=== PATIENT | male | born 1930 | race Caucasian/White ===

== ENCOUNTER 2016-08-26 12:16 | Day surgery (SDC) | payer OTHER ==
[2016-08-26] MEDS ORDERED: NS 500 ML IV ONE (12:22)
[2016-08-26] MEDS ORDERED: PROPOFOL 200 MG/20 ML VIAL IVP ONE (12:22)
[2016-08-26] MEDS ORDERED: fentaNYL 100 MCG/2 ML INJ IVP ONE (12:22)
[2016-08-26] MEDS ORDERED: BENZOCAINE UNIT DOSE SPRAY HURRICAINE MM ONE (12:22)
[2016-08-26] MEDS ORDERED: MIDAZOLAM 2 MG/2 ML VIAL IVP ONE (12:22)
--- NOTE | 2016-08-26 12:47 | CPEKG ---
Heart Rate: 77 RR Interval: 779 QRSD Interval: 142 QT Interval: 460 QTC Interval: 521 QRS [place]: -105 T Wave [place]: 64 EKG Severity - ABNORMAL ECG - EKG Impression: ATRIAL FIBRILLATION EKG Impression: probably ventricularly paced. Electronically Signed By: Pedro Grant 26-Aug-2016 16:51:09
[2016-08-26 13:06] LABS: INR 3.08 (0.83-1.16); PROTIME(PATIENT) 32.2 SEC (12.0-15.0)
[2016-08-26 13:07] LABS: APTT 47.3 SEC (23.0-38.0)
[2016-08-26 13:08] LABS: ANION GAP 11 mEq/L (8-16); CALCIUM 8.5 mg/dL (8.5-10.4); CARBON DIOXIDE 26 mEq/l (22-31); CHLORIDE 102 mEq/L (97-110); CREATININE 0.9 mg/dL (0.7-1.3); GLOMERULAR FILTRATION RATE > 60; GLUCOSE 97 mg/dL (70-100); MAGNESIUM 2.1 mg/dL (1.6-2.3); POTASSIUM 4.2 mEq/L (3.5-5.2); SODIUM 139 mEq/L (134-144)
--- NOTE | 2016-08-26 14:41 | CPEKG ---
Heart Rate: 61 RR Interval: 984 P-R Interval: 150 QRSD Interval: 96 QT Interval: 452 QTC Interval: 456 P [place]: -56 QRS [place]: 30 T Wave [place]: -20 EKG Severity - ABNORMAL ECG - EKG Impression: ATRIAL-PACED COMPLEXES EKG Impression: LOW VOLTAGE IN FRONTAL LEADS EKG Impression: ST/T wave abnormalities lateral leads, possible lateral ischemia. EKG Impression: BORDERLINE PROLONGED QT INTERVAL Electronically Signed By: Pedro Grant 26-Aug-2016 16:50:03
--- NOTE | 2016-08-28 16:05 | EPPROC ---
Electrophysiology Procedure Note: rocedure: CV Indication: AF Procedure: Pt sedated by anesthesia staff. Once sedated, he was cardioverted using 200J of DC. Pt successfully converted to SR. Conclusion: Successful CV Patient Problems: Problems Problem Status Diagnosed Syncope Acute Atrial fibrillation or flutter Acute
== END 2016-08-26 15:00 | disposition home or self-care (01) ==
LOC: FCATH 12:16
PROVIDERS: ATTEND Internal Medicine Cardiovascular Disease
PROC: 5A2204Z Restoration of Cardiac Rhythm, Single (ICD-10-PCS; principal; 2016-08-26)
DX: I48.0 Paroxysmal atrial fibrillation (principal); I48.92 Unspecified atrial flutter; Z79.01 Long term (current) use of anticoagulants
CPT/HCPCS: J2704

== ENCOUNTER → 2016-09-03 | Outpatient (CLI) | payer OTHER | LOC: BHFA 15:30 | PROVIDERS: ATTEND Internal Medicine Cardiovascular Disease | DX: I48.91 Unspecified atrial fibrillation (principal); I49.5 Sick sinus syndrome; I48.92 Unspecified atrial flutter ==

== ENCOUNTER 2016-11-09 09:05 | Inpatient (IN) | payer OTHER ==
--- NOTE | 2016-11-09 10:23 | CPEKG ---
Heart Rate: 78 RR Interval: 769 QRSD Interval: 136 QT Interval: 432 QTC Interval: 493 P [place]: 0 QRS [place]: 261 T Wave [place]: 70 EKG Severity - ABNORMAL ECG - EKG Impression: Dual-chamber pacemaker with some evidence for sensing abnormality-- New since EKG Impression: August 26, 2016 Electronically Signed By: Keith Dotson 09-Nov-2016 12:13:25
[2016-11-09 11:07] LABS: % IMMATURE GRANULYOCYTES 0.4 % (0.0-1.1); ABSOLUTE IMMATURE GRANULOCYTES 0.02 10^3/uL (0.00-0.10); ADD DIFF? NO; ADD MORPH? NO; ADD SCAN? NO; ATYPICAL LYMPHOCYTE FLAG 20 (0-99); FRAGMENT RBC FLAG 0 (0-99); HEMATOCRIT 37.7 % (40.0-51.0); HEMOGLOBIN 13.3 g/dL (13.7-17.5); LEFT SHIFT FLG 0 (0-99); LIPEMIA HEMOLYSIS FLAG 90 (0-99); MEAN CELL HEMOGLOBIN 34.9 pg (27.9-34.1); MEAN CELL HEMOGLOBIN CONCENTR. 35.3 g/dL (32.4-36.7); MEAN PLATELET VOLUME 9.6 fL (8.7-11.7); PLATELET CLUMPS FLAG 0 (0-99); PLATELET COUNT 138 10^3/uL (150-400); RED BLOOD CELL COUNT 3.81 10^6/uL (4.40-6.38); RED CELL DISTRIBUTION WIDTH 14.8 % (11.5-15.2)
[2016-11-09 11:18] LABS: INR 2.37 (0.83-1.16); PROTIME(PATIENT) 26.1 SEC (12.0-15.0)
[2016-11-09 11:19] LABS: APTT 44.3 SEC (23.0-38.0)
[2016-11-09 11:24] LABS: ANION GAP 7 mEq/L (8-16); CALCIUM 9.1 mg/dL (8.5-10.4); CARBON DIOXIDE 27 mEq/l (22-31); CHLORIDE 101 mEq/L (97-110); CREATININE 0.8 mg/dL (0.7-1.3); GLOMERULAR FILTRATION RATE > 60; GLUCOSE 95 mg/dL (70-100); MAGNESIUM 2.1 mg/dL (1.6-2.3); POTASSIUM 4.5 mEq/L (3.5-5.2); SODIUM 135 mEq/L (134-144)
[2016-11-09] MEDS ORDERED: ACETAMINOPHEN 325 MG TAB PO PRN (11:49)
--- NOTE | 2016-11-09 12:09 | PDCARPN ---
Cardiology Progress Note Chief Complaint: Patient reports occasional episodes of palpitations with symptoms of fatigue. Assessment/Plan: Assessment: Please see Dr. King is note dated 10/08/2016 for history and physical. 86-year- old male with significant history that includes, paroxysmal atrial fibrillation , status post cryoablation in 2014, sick sinus syndrome with ventricular pauses with remote history of ppm implantation, nonsustained ventricular tachycardia. Despite ablation and beta-yina therapy, he continues to have intermittent atrial arrhythmias predominantly a flutter, reporting significant fatigue symptoms when in arrhythmias. Denies of any lightheadedness or near-syncope. Had been attempted on antiarrhythmic therapy Rythmol in the past, and had not been able to tolerate it. He has been deemed appropriate candidate to undergo sotalol loading in placement for his Bystolic. Currently denies of any chest pain or symptoms suggesting of ischemia, denies of any symptoms suggesting of heart failure. Electrocardiogram today shows AV paced rhythm. Laboratory studies show INR therapeutic at 2.37, no significant electrolyte or renal abnormalities. Mild anemia with hemoglobin 13.3 and hematocrit 37.7. Patient denies of any bleeding issues, long-term history of warfarin therapy. Patient' s most recent coronary angiogram was 05/05/2016 that showed no significant coronary disease, right dominant,. Most recent echocardiogram (05/03/2016) showing normal LVEF, no diastolic dysfunction, EF 64%, LA is moderately dilated , RA is moderately dilated, cmda-xb-vwygpjup mitral annular calcification, mild MR, mild TR, RVSP is normal. Mildly dilated ascending aorta at 4 cm. Plan: 1. Paroxysmal atrial fibrillation/atrial flutter: Plan for sotalol loading, 80 mg p. o. twice daily. 1st dose to be given now. 2 hour post dose EKGs. Will continue on current home dose of warfarin. Daily INR checks. 2. Sick sinus syndrome: Status post pacemaker 3. History of nonsustained ventricular tachycardia: Recent cardiac catheterization showed no CAD, is on beta-yina, transitioning over to sotalol. Continue on cardiac monitoring. Continue monitoring electrolyte and renal functions on a daily basis. 4. Dilated ascending aorta: no significant growth off most recent echocardiogram, continue with yearly surveillance echocardiograms. 5. Code status: Patient is a full code, 6. DVT precaution: Patient is up ad joseph, have been ordered a knee-high Robert hose , he is currently on warfarin therapy. Patient was seen by both myself and Dr. King. 11/09/16 12:06 Subjective: Patient reports occasional palpitations with symptoms of fatigue, denies of any chest pain, shortness of breath lightheadedness, near-syncope, or syncopal events. Denies of any orthopnea, PND, edema. denies of any bleeding issues, on long-term warfarin therapy. Reviewed/Discussed With: other ( Dr. King) Objective: Intake/Output (24 Hrs) 11/08/16 11/09/16 11/10/16 05:59 05:59 05:59 Other: Weight 83.915 kg Result Diagrams: 11/09/16 10:51 11/09/16 10:51 - Physical Exam Constitutional: WDWN, healthy appearing, no apparent distress Ears, Nose, Mouth, Throat: moist mucous membranes Cardiovascular: regular rate and rhythm, no rubs, systolic murmur ( 2/6 systolic murmur noted along left sternal border.), No jugular vein distention, No carotid bruit Peripheral Pulses: 1+: dorsalis-pedis (R), dorsalis-pedis (L), 2+: carotid (R), carotid (L) Respiratory: clear to auscultate bilat, no crackles, no wheezes Gastrointestinal: normoactive bowel sounds, no tenderness, no masses Skin: no rashes, no edema Neurologic: AAOx3, CN II-XII grossly intact Psychiatric: cooperative, interactive, following commands ICD10 Worksheet Patient Problems: Problems Problem Status Onset Atrial fibrillation or flutter Acute Syncope Acute
[2016-11-09] MEDS: SOTALOL HCL 80 MG TAB PO SCH ×2 (12:31→21:20)
--- NOTE | 2016-11-09 14:37 | CPEKG ---
Heart Rate: 61 RR Interval: 984 P-R Interval: 196 QRSD Interval: 94 QT Interval: 444 QTC Interval: 448 P [place]: 0 QRS [place]: -15 T Wave [place]: -5 EKG Severity - ABNORMAL ECG - EKG Impression: ATRIAL-PACED COMPLEXES EKG Impression: No evidence of sensing abnormality compared to November 09, 2016, 10:22 Electronically Signed By: Keith Dotson 09-Nov-2016 15:21:36
[2016-11-09] MEDS ORDERED: ATORVASTATIN CALCIUM 10 MG TAB PO SCH (21:00)
[2016-11-09] MEDS: SIMVASTATIN 20MG TAB PO SCH (21:19)
[2016-11-09] MEDS: WARFARIN SODIUM 5 MG TAB PO SCH (21:20)
--- NOTE | 2016-11-09 23:21 | CPEKG ---
Heart Rate: 60 RR Interval: 1000 P-R Interval: 132 QRSD Interval: 92 QT Interval: 448 QTC Interval: 448 QRS [place]: 25 T Wave [place]: 17 EKG Severity - ABNORMAL ECG - EKG Impression: ATRIAL-PACED RHYTHM EKG Impression: LOW VOLTAGE IN FRONTAL LEADS EKG Impression: Right ventricular conduction defect Electronically Signed By: Keith Dotson 10-Nov-2016 06:28:00
[2016-11-10 03:51] LABS: INR 2.32 (0.83-1.16); PROTIME(PATIENT) 25.7 SEC (12.0-15.0)
[2016-11-10 04:13] LABS: ANION GAP 7 mEq/L (8-16); CALCIUM 8.5 mg/dL (8.5-10.4); CARBON DIOXIDE 23 mEq/l (22-31); CHLORIDE 105 mEq/L (97-110); CREATININE 0.9 mg/dL (0.7-1.3); GLOMERULAR FILTRATION RATE > 60; GLUCOSE 92 mg/dL (70-100); MAGNESIUM 2.1 mg/dL (1.6-2.3); POTASSIUM 4.3 mEq/L (3.5-5.2); SODIUM 135 mEq/L (134-144)
[2016-11-10] MEDS: SOTALOL HCL 80 MG TAB PO SCH ×2 (08:10→20:58)
[2016-11-10] MEDS: CHOLECALCIFEROL VIT D3 1,000 UNITS TAB PO SCH (08:10)
--- NOTE | 2016-11-10 09:57 | PDCARPN ---
Cardiology Progress Note Chief Complaint: Patient reports significantly less palpitations. Assessment/Plan: Assessment: 86-year-old male with significant history that includes paroxysmal atrial fibrillation status post cryoablation in 2014, sick sinus syndrome with ventricular pauses with remote ppm implantation, nonsustained ventricular tachycardia, dilated ascending aorta. Most recent echocardiogram 04/23/2016) showed normal LV systolic function, no diastolic dysfunction, EF 64%, LA is moderately dilated, RA is moderately dilated vtaq-vj-wcodfydl mitral annular calcification, mild MR, mild TR, RVSP normal. Mildly dilated ascending aorta at 4.0 cm. Recent cardiac catheterization showed no CAD. Despite beta blockage therapy, patient has been continuing to have atrial arrhythmias, predominantly atrial flutter. Reporting significant fatigue symptoms. Admitted to the hospital 11/09/2016 for sotalol loading. Reports no adverse reaction to medications. Showing on continuous cardiac monitoring AV paced or a paced with intrinsic ventricular response. No significant pauses or malignant arrhythmias noted since hospitalization. Laboratory studies done today show INR 2.32, potassium 4.3 magnesium 2.1, creatinine 0.9. 2 hour post dosing sotalol EKG done at 11:00 p.m. last night showed QTC of 448 milliseconds. Patient denies of any palpitations, chest pain, shortness of breath, lightheadedness. Plan: 1. Paroxysmal atrial fibrillation/atrial flutter: Continue current dose of sotalol loading, 80 mg p.o. twice daily. Continue getting to our post EKGs for total of 4 doses. Current home dose of warfarin, INR therapeutic. 2. Sick sinus syndrome: Status post pacemaker 3. History of nonsustained ventricular tachycardia: Potassium and magnesium within normal limits, recent cardiac catheterization showed no CAD, no arrhythmias have been noted since hospitalization for sotalol loading. 4. Dilated ascending aorta: No significant change from 1 year his echo. Patient to continue on surveillance echocardiograms, medical management. Patient will get last dose of required for dosing with electrocardiograms tonight. Will plan for monitoring overnight, and discharged tomorrow morning. 11/10/16 09:54 Subjective: Patient denies of any chest pain, shortness of breath, orthopnea, PND, edema, near-syncope, or syncopal events. Reviewed/Discussed With: other (Dr King) Objective: Vital Signs (8 Hrs) Temp Pulse Resp BP Pulse Ox 11/10/16 07:33 36.3 C 60 19 115/79 93 11/10/16 03:52 36.6 C 80 16 103/61 92 Intake/Output (24 Hrs) 11/09/16 11/10/16 11/11/16 05:59 05:59 05:59 Intake Total 470 Balance 470 Intake: Oral (ml) 470 Other: Weight 83.915 kg Intake Quantity Yes Sufficient Number of Stools Toilet 1 Result Diagrams: 11/09/16 10:51 11/10/16 03:10 - Physical Exam Constitutional: WDWN, healthy appearing Cardiovascular: regular rate and rhythm, no rubs, systolic murmur (1-2/6 systolic murmur noted along left sternal border), pulses symmetric bilat, No jugular vein distention, No carotid bruit Peripheral Pulses: 1+: dorsalis-pedis (R), dorsalis-pedis (L), 2+: carotid (R), carotid (L) Respiratory: clear to auscultate bilat, no crackles, no wheezes, No reduced air movement Gastrointestinal: normoactive bowel sounds Skin: warm, no edema Neurologic: AAOx3 Psychiatric: cooperative, interactive, following commands ICD10 Worksheet Patient Problems: Problems Problem Status Onset Atrial fibrillation or flutter Acute Syncope Acute
--- NOTE | 2016-11-10 10:41 | CPEKG ---
Heart Rate: 61 RR Interval: 984 P-R Interval: 219 QRSD Interval: 92 QT Interval: 452 QTC Interval: 456 QRS [place]: 21 T Wave [place]: -14 EKG Severity - ABNORMAL ECG - EKG Impression: ATRIAL-PACED RHYTHM EKG Impression: Right ventricular conduction defect EKG Impression: Diffuse ST-T wave abnormalities-- New since November 09, 2016 EKG Impression: Low voltage frontal leads Electronically Signed By: Keith Dotson 10-Nov-2016 18:17:23
[2016-11-10] MEDS: SIMVASTATIN 20MG TAB PO SCH (20:58)
[2016-11-10] MEDS: WARFARIN SODIUM 5 MG TAB PO SCH (20:58)
--- NOTE | 2016-11-10 22:58 | CPEKG ---
Heart Rate: 60 RR Interval: 1000 P-R Interval: 204 QRSD Interval: 136 QT Interval: 492 QTC Interval: 492 QRS [place]: 259 T Wave [place]: 53 EKG Severity - ABNORMAL ECG - EKG Impression: Dual-chamber electronic pacemaker, With ventricular pacing being new since EKG Impression: November 10, 2016, 10:40 Electronically Signed By: Keith Dotson 11-Nov-2016 06:41:08
[2016-11-11 03:52] VITALS: TEMP 97.5
[2016-11-11 05:27] LABS: ANION GAP 6 mEq/L (8-16); CALCIUM 8.8 mg/dL (8.5-10.4); CARBON DIOXIDE 24 mEq/l (22-31); CHLORIDE 103 mEq/L (97-110); CREATININE 0.9 mg/dL (0.7-1.3); GLOMERULAR FILTRATION RATE > 60; GLUCOSE 93 mg/dL (70-100); MAGNESIUM 2.1 mg/dL (1.6-2.3); POTASSIUM 4.4 mEq/L (3.5-5.2); SODIUM 133 mEq/L (134-144)
[2016-11-11 05:30] LABS: INR 2.18 (0.83-1.16); PROTIME(PATIENT) 24.4 SEC (12.0-15.0)
[2016-11-11 07:56] VITALS: BP 101/65; PULSE 71; RESP 16; O2SAT 95
[2016-11-11] MEDS: SOTALOL HCL 80 MG TAB PO SCH (08:42)
[2016-11-11] MEDS: CHOLECALCIFEROL VIT D3 1,000 UNITS TAB PO SCH (08:42)
--- NOTE | 2016-11-11 10:39 | CPEKG ---
Heart Rate: 60 RR Interval: 1000 P-R Interval: 144 QRSD Interval: 90 QT Interval: 436 QTC Interval: 436 P [place]: 0 QRS [place]: 50 T Wave [place]: -16 EKG Severity - ABNORMAL ECG - EKG Impression: ATRIAL-PACED COMPLEXES EKG Impression: BORDERLINE T ABNORMALITIES, INFERIOR LEADS EKG Impression: No evidence of ventricular pacing since November 10, 2016 Electronically Signed By: Keith Dotson 11-Nov-2016 12:24:00
--- NOTE | 2016-11-11 19:51 | GDS ---
[f rep st] DISCHARGE SUMMARY ADMISSION DIAGNOSES: 1. Paroxysmal atrial fibrillation/atrial flutter. 2. Sick sinus syndrome, status post permanent pacemaker implantation. 3. History of nonsustained ventricular tachycardia. 4. Dilated ascending aorta. DISCHARGE DIAGNOSES: 1. Paroxysmal atrial fibrillation/flutter, status post sotalol loading. 2. Sick sinus syndrome with permanent pacemaker implantation. 3. History of nonsustained ventricular tachycardia. 4. Dilated ascending aorta. PROCEDURES DURING HOSPITALIZATION: 1. Continuous cardiac monitoring. 2. A 2-hour post sotalol dosing electrocardiograms. BRIEF HISTORY: Please see H and P. The patient is an 86-year-old male with noted history of paroxy smal atrial fibrillation and atrial flutter, who continues despite beta blockage therapy to have int ermittent runs of atrial arrhythmias. He reports significant symptoms of fatigue and arrhythmia wit h shortness of breath. He had been attempted on antiarrhythmic therapy in the past of Rythmol, and had adverse reaction. He had seen Dr. King, and it was felt that, due to his ongoing symptoms, that he should attempt to be placed on a different antiarrhythmic, potential sotalol. HOSPITAL COURSE: The patient was admitted on the to PCU, in which he had initial laboratory st udies drawn in and electrocardiogram, and started on sotalol as Bystolic dosage had been discontinue d. Started on sotalol 80 mg p.o. twice daily. Throughout the hospitalization, he had 2-hour post d osing electrocardiograms, which showed no significant prolongation in his QTc when he was in sinus r hythm and JT when he was paced. He tolerated the medications fine. He was noted to have no signifi cant arrhythmias while on continuous cardiac monitoring. He has been able to walk the unit without any difficulties, and without any reported further episodes of shortness of breath. PHYSICAL EXAMINATION: GENERAL APPEARANCE: Tall, well-groomed, male. He is alert and yojana ented to person, place, time, and situation. Appears to be under no acute distress. VITAL SIGNS: Blood pressure of 101/65, heart rate of 71, AV paced at the current time, respirations 16, saturatin g 95% on room air, temperature 36.4 degrees Celsius. HEENT: Head is normocephalic. Lips and tongu e are pink and moist with no signs of cyanosis. Conjunctivae pink. NECK: Trachea is midline, +2 c arotid pulses bilateral. No auscultated bruits. No jugular vein distention. RESPIRATORY: Lungs c lear to auscultation, no rhonchi, rales or wheezes. No accessory muscle use. No intercostal muscle retraction noted. CARDIAC: Regular rate, regular rhythm, S1, S2, no S3. A 2/6 systolic murmur no sarah along the sternal border. ABDOMEN: Soft, nontender, bowel sounds x4 quadrants. No organomegal y. No palpable masses. SKIN: [place], warm, dry. No cyanosis. No clubbing. No peripheral edema. VASCULAR: +2 carotids bilateral, +2 radials bilateral, +1 dorsal pedal and posterior tibial pulses bilateral. NEURO: Cranial nerves 2-12 grossly intact. LABORATORY STUDIES: CBC done on admission showed WBC of 4.66, hemoglobin of 13.3, hematocrit of 37. 7, platelet count 138. Today's laboratory study show INR stable at 2.18, sodium 133, potassium 4.4, chloride 103, CO2 24, BUN 19, creatinine 0.9, glucose 93, calcium 8.8, magnesium 2.1. STUDIES: Electrocardiogram done today 2 hours post last 8:30 dosage of sotalol shows atrial paced w ith intrinsic ventricular beats showing normal axis, noted Q-waves in lead 3, with borderline T-wave abnormalities in inferior leads. QTcB was estimated at 436 milliseconds. DISCHARGE DISPOSITION: The patient will be discharged home in stable condition. He is under no act ivity restrictions. DISCHARGE MEDICATIONS: Please see discharge med reconciliation sheet. Note, that patient's home By [facility] dose has been discontinued, and he has been started on sotalol at 80 mg p.o. twice daily. DISCHARGE INSTRUCTIONS: Post sotalol loading discharge instructions went over with the patient, inc luding monitoring for palpitations, importance for routine followup, and medication compliancy. The patient has a followup appointment to see Dr. King on February 03 at 1:15 p.m. He also will follow up [facility] on November 23 at 2:30 p.m. At the time of discharge, he verbalizes understanding of all discharge instructions, and has no questions or concerns. He has been told that if any problem s or concerns post discharge, he is to call our office or return to the hospital. Total time spent on discharge greater than 30 minutes. /[id number]/MODL
== END 2016-11-11 13:23 | disposition home or self-care (01) | DRG 310 ==
LOC: F2W 09:05 → OBSVTOIN 11:49
PROVIDERS: ADMIT Internal Medicine Cardiovascular Disease; ATTEND Internal Medicine Cardiovascular Disease
DX: I48.0 Paroxysmal atrial fibrillation (principal); I77.810 Thoracic aortic ectasia; Z95.0 Presence of cardiac pacemaker

== ENCOUNTER 2016-12-07 05:51 | Inpatient (IN) | payer OTHER ==
[2016-12-07] MEDS ORDERED: ACETAMINOPHEN 325 MG TAB PO ONE ×2 (06:00→07:00)
[2016-12-07] MEDS ORDERED: CEFAZOLIN 2 GM/DEXTR 100 ML IV ONE ×2 (06:00→07:00)
[2016-12-07] MEDS ORDERED: CHLORHEXIDINE GLUC HIBICLENS 118 ML BTL TP ONE ×2 (06:00→07:00)
[2016-12-07] MEDS ORDERED: DEXAMETHASONE 4 MG/ML VIAL IVP ONE ×2 (06:00→07:00)
[2016-12-07] MEDS ORDERED: FAMOTIDINE 20 MG TAB PO ONE ×2 (06:00→07:00)
[2016-12-07] MEDS ORDERED: LIDOCAINE 1% 2 ML INJ ONE (06:08)
[2016-12-07] MEDS ORDERED: ceFAZolin 1 GM/5 ML SYR ONE (06:23)
[2016-12-07] MEDS ORDERED: CALCIUM CHLORIDE 1 GM/10 ML INJ ONE (06:23)
[2016-12-07] MEDS ORDERED: THROMBIN (BOVINE) 5,000 UNIT VIAL TP ONE (06:23)
[2016-12-07] MEDS ORDERED: DEXAMETHASONE 4 MG/ML VIAL ONE (06:44)
[2016-12-07] MEDS ORDERED: PROPOFOL/EMULSION 500 MG/50 ML BOTTLE IV ONE (06:44)
[2016-12-07] MEDS ORDERED: LIDOCAINE 2% 5 ML SDV ONE (06:44)
[2016-12-07] MEDS ORDERED: fentaNYL 100 MCG/2 ML INJ ONE ×2 (06:44→08:30)
[2016-12-07] MEDS ORDERED: PROPOFOL 200 MG/20 ML VIAL ONE (06:46)
[2016-12-07 07:04] LABS: INR 1.4 (0.83-1.16); PROTIME(PATIENT) 17.1 SEC (12.0-15.0)
[2016-12-07] MEDS ORDERED: LIDOCAINE 1% 5 ML SDV ID PRN (07:23)
[2016-12-07] MEDS ORDERED: LR 1,000 ML IV ONE (07:23)
[2016-12-07] MEDS ORDERED: ROPI/epiNEPH/KETOROLAC JOINT COCKTAIL IU ONE (07:30)
[2016-12-07] MEDS ORDERED: ROCURONIUM 50 MG/5 ML VIAL ONE (07:38)
[2016-12-07] MEDS ORDERED: BUPIVACAINE 0.5% 30 ML SDV ONE (09:17)
[2016-12-07] MEDS ORDERED: METOCLOPRAMIDE 10 MG/2 ML VIAL IVP PRN (10:23)
[2016-12-07] MEDS ORDERED: diphenhydrAMINE 25 MG CAP PO PRN (10:23)
[2016-12-07] MEDS ORDERED: BISACODYL 10 MG SUPP PR PRN (10:23)
[2016-12-07] MEDS ORDERED: FAMOTIDINE 20 MG TAB PO PRN (10:23)
[2016-12-07] MEDS ORDERED: POLYETHYLENE GLYCOL 3350 17 GM PKT PO PRN (10:23)
[2016-12-07] MEDS ORDERED: CYCLOBENZAPRINE 10 MG TAB PO PRN (10:23)
[2016-12-07] MEDS ORDERED: PROMETHAZINE HCL 25 MG SUPPR PR PRN (10:23)
[2016-12-07] MEDS ORDERED: PHARMACY PAIN CONSULT 1 EA MISC PRN (10:23)
[2016-12-07] MEDS ORDERED: oxyCODONE IR 5 MG TAB PO PRN (10:23)
[2016-12-07] MEDS ORDERED: LACTULOSE 20 GM/30 ML UDCUP PO PRN (10:23)
[2016-12-07] MEDS ORDERED: DIPHENOXYLATE/ATROPINE LOMOTIL 1 TAB PO PRN (10:23)
[2016-12-07] MEDS ORDERED: MAGNESIUM HYDROXIDE 30 ML UDCUP PO PRN (10:23)
--- NOTE | 2016-12-07 10:34 | POSTOPPROG ---
Post Op Note Date of Operation: 12/07/16 Surgeon: Dian Carrillo Neon Sign Worker: Fiona Bejarano PA-C Anesthesiologist: Dr. Chase Anesthesia: GET(General Endotracheal) Pre-op Diagnosis: left knee osteoarthritis Post-op Diagnosis: left knee osteoarthritis Indication: left knee pain Procedure: left TKA Inf/Abcess present in the surg proc area at time of surgery?: No EBL: Minimal Complications: none
--- NOTE | 2016-12-07 10:36 | SOAPPROG ---
JING Progress Note Assessment/Plan: Assessment/Plan: 86y/o male s/p left TKA - orders as written - have contacted [facility] to discuss need for possible anticoagulation bridging; ok to start Warfarin tonight per Dr. Carrillo - xrays pending - PT/OT; no knee flexion >90 degrees - Active Care System for DVT prevention; no need for TEDs with Active Care use - call with issues/concerns 12/07/16 10:34 Subjective: Mild knee pain Objective: PT 17.1 SEC (12.0-15.0) H 12/07/16 06:42 INR 1.40 (0.83-1.16) H 12/07/16 06:42 NAD, no distress waking from anesthesia EOMi, face symmetric MAEx4 incision clean, dressed ICD10 Worksheet Patient Problems: Problems Problem Status Onset Atrial fibrillation or flutter Acute Syncope Acute
--- NOTE | 2016-12-07 10:57 | GOP ---
[f rep st] OPERATIVE REPORT DATE OF OPERATION: 12/07/2016 SURGEON: Dian Carrillo MD [employer]BESTOS ABATEMENT WORKER: Fiona Bejarano, PRIYA. ANESTHESIA: General with adductor canal block. PREOPERATIVE DIAGNOSIS: Severe osteoarthritis, left knee. POSTOPERATIVE DIAGNOSIS: Severe osteoarthritis, left knee. PROCEDURE PERFORMED: Left total knee arthroplasty. 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 At the time of surgery, this finding was conf irmed. The patient had a large bony defect with collapse on the medial femoral condyle. There was also a large loose body in the knee, which was a piece of the medial femoral condyle. This was roxanne edgar. The patient had [id number]-aw-[id number] degenerative change in the patellofemoral joint and mild late ral compartment arthrosis. A cemented Torre [employer] Nephew Journey 2 posterior stabilized total knee ar throplasty was performed. A size 8 femoral component was cemented into place and a size 7 tibial ba se plate was utilized. This was also cemented into place. A 9 mm thick cross-linked polyethylene i nsert was placed in the metal backing of the tibia. Following implantation of the components, the k nee was taken through a range of motion and achieved full extension and 135 degrees of flexion. The patient had excellent stability to varus and valgus stressing both in extension and flexion. The p atella tracked well in the trochlear groove. It was resurfaced with a 41 mm round patellar button. This was also cemented. ESTIMATED BLOOD LOSS: Less than 100 cc. DESCRIPTION OF PROCEDURE: The patient was taken to the operating room, placed in supine position on the operating table. Following induction of adequate general anesthesia and placement of an adduct or canal block, the knee and leg were prepped and draped in the usual sterile manner. The patient r eceived 2 g of IV Ancef. The leg was elevated and exsanguinated and the tourniquet inflated to 275 mmHg. A midline incision was made extending from 2 fingerbreadths above the superior pole of the pa tella distally to the tibial tubercle. Incision was carried down through the subcutaneous tissue to the patellar retinaculum. The DeMayo leg gerardo was used throughout the procedure for positioning. A medial parapatellar arthrotomy was performed. The patella was everted laterally and the thickne ss was measured. A 9 mm cut was taken from the patella and then the patella was placed in the later al gutter for later preparation. Our attention was then turned to the femur. A distal femoral dril l hole was placed and then intramedullary referencing was utilized for the distal femoral cut. The block was positioned and pinned and then a +2 cut was taken from the distal femur. Next, the remain ing articular cartilage was removed from the lateral femoral condyle and the femoral sizer was pinne d into place on the distal femur. The femur was sized and a size 8 was chosen as the best fit. The size 8 cutting guide was then positioned on the distal femur, and the anterior, posterior, and azeb eddie cuts were made. The notch was cleared with a reamer followed by the box osteotome. The femoral component was then removed and our attention was turned to the tibia. Again, intramedullary refere ncing was utilized for the tibia. The drill hole was placed in the area of the tibial spines and th e intramedullary irvin was inserted. The tibial cutting guide was positioned and pinned and then the tibial cut was made. The knee was brought into extension and the lollipop was placed in the defect both in flexion and extension, and the gaps were symmetrical and satisfactory. The knee was flexed up and the tibia was sized. A size 7 was chosen as the best fit and was pinned into place. A trial reduction was then performed and a 9 mm thick polyethylene was utilized. The patient achieved full extension and 135 degrees of flexion with excellent stability. The femoral component was removed, as was the polyethylene and the keel punch was passed. The tibial component was then removed. The patella was prepared using the clamp to drill the holes and the 41 mm patella component was felt to be the best size. All of the bony surfaces were thoroughly irrigated and dried, and then the cement was mixed. The tibial component was cemented into place first followed by the femoral component. The polyethylene was inserted and the knee was brought into extension while the cement hardened. Th e patella was also cemented. Once the cement was hard and excess cement had been removed from aroun d the edges of the prosthesis, the trial polyethylene was removed and the polyethylene insert was op ened and inserted. Again, the knee was taken through a range of motion and noted to be stable with satisfactory motion. The wound was thoroughly irrigated out. The posterior capsule was injected wi th joint cocktail. The extensor mechanism was also injected. The arthrotomy was closed using #2 Fi berWire in a [id number]-[id number]-nfcee fashion. The subcutaneous tissues were closed using 2-0 Vicryl and the skin was closed using anjali. Platelet gel was used in the deep and superficial portions of the w ound to enhance wound healing. The patient tolerated the procedure well. There were no complicatio ns. Estimated blood loss minimal. Final sponge, needle counts were correct. The patient was trans ported to the recovery room in good condition. /[id number]/MODL
[2016-12-07] MEDS: ACETAMINOPHEN 325 MG TAB PO SCH ×2 (12:51→18:33)
[2016-12-07] MEDS: LR 1,000 ML IV SCH ×2 (12:52→21:41)
[2016-12-07] MEDS: ceFAZolin 2 GM/DEXTROSE 100 ML IV SCH ×2 (13:40→22:36)
[2016-12-07] MEDS: SOTALOL HCL 80 MG TAB PO SCH (20:37)
[2016-12-07] MEDS: SENNOSIDES/DOCUSATE SODIUM TAB PO SCH (20:38)
[2016-12-07] MEDS ORDERED: ATORVASTATIN CALCIUM 10 MG TAB PO SCH (21:00)
[2016-12-07] MEDS ORDERED: WARFARIN SODIUM 5 MG TAB PO SCH (21:00)
[2016-12-07] MEDS ORDERED: NON-FORMULARY NEW DRUG (Simvastatin [Zocor] 20 MG) PO SCH (21:00)
[2016-12-08] MEDS: ACETAMINOPHEN 325 MG TAB PO SCH ×3 (03:54→12:19)
[2016-12-08 05:22] LABS: % IMMATURE GRANULYOCYTES 0.5 % (0.0-1.1); ABSOLUTE IMMATURE GRANULOCYTES 0.05 10^3/uL (0.00-0.10); ADD DIFF? NO; ADD MORPH? NO; ADD SCAN? NO; ATYPICAL LYMPHOCYTE FLAG 10 (0-99); FRAGMENT RBC FLAG 0 (0-99); HEMATOCRIT 27.4 % (40.0-51.0); HEMOGLOBIN 9.6 g/dL (13.7-17.5); LEFT SHIFT FLG 10 (0-99); LIPEMIA HEMOLYSIS FLAG 90 (0-99); MEAN CELL HEMOGLOBIN 34.2 pg (27.9-34.1); MEAN CELL VOLUME 97.5 fL (81.5-99.8); PLATELET CLUMPS FLAG 0 (0-99); PLATELET COUNT 106 10^3/uL (150-400); RED BLOOD CELL COUNT 2.81 10^6/uL (4.40-6.38); RED CELL DISTRIBUTION WIDTH 15.1 % (11.5-15.2)
[2016-12-08] MEDS: LR 1,000 ML IV SCH (06:05)
[2016-12-08] MEDS ORDERED: FERROUS SULFATE 140 MG TAB.ER PO SCH (09:00)
[2016-12-08] MEDS ORDERED: ENOXAPARIN 80 MG/0.8 ML SYR SC SCH (09:00)
[2016-12-08] MEDS: SOTALOL HCL 80 MG TAB PO SCH (09:30)
[2016-12-08] MEDS: SENNOSIDES/DOCUSATE SODIUM TAB PO SCH ×2 (09:31→09:53)
--- NOTE | 2016-12-08 12:25 | SOAPPROG ---
JING Progress Note Assessment/Plan: Assessment/Plan: 86y/o male s/p left TKA - stable and doing well - discussed anticoagulation with [facility] who recommends Lovenox 80mg bid until INR therapeutic; Jamel will f/u with anticoagulation clinic in 2 days for INR check - continue iron for low H&H - platelets a bit low today, reviewed last several labs and show chronically low platelets; encouraged Jamel to address with [facility] vs. PCP later this week - xrays show stable hardware - PT/OT has been going well; no knee flexion >90 degrees - Active Care System for DVT prevention; no need for TEDs with Active Care use - call with issues/concerns; return precautions discussed; patient will need home health care which has been coordinated 12/08/16 12:22 Subjective: Mild knee pain. Eating, drinking, voiding, had BM. Feeling well and anxious to go home Objective: Vital Signs Temp Pulse Resp BP Pulse Ox 36.3 C 62 16 110/65 93 12/08/16 04:00 12/08/16 08:00 12/08/16 08:00 12/08/16 08:00 12/08/16 08:00 Laboratory Results 12/08/16 04:41 12/07/16 12/08/16 12/09/16 05:59 05:59 05:59 Intake Total 3209 Output Total 820 Balance 2389 PT 17.1 SEC (12.0-15.0) H 12/07/16 06:42 INR 1.40 (0.83-1.16) H 12/07/16 06:42 NAD, well appearing, no distress EOMi, face symmetric MAEx4 knee extension 10 knee flexion 90 incision CDI ICD10 Worksheet Patient Problems: Problems Problem Status Onset Atrial fibrillation or flutter Acute Syncope Acute
[2016-12-08 12:40] VITALS: BP 90/56; PULSE 74; RESP 14; TEMP 98; O2SAT 95
--- NOTE | 2016-12-08 12:50 | PDIAF ---
- Diagnosis Diagnosis: left knee arthritis Code Status: Full Code - Medication Management Discharge Medications: Medications to Continue on Transfer Cholecalciferol Vit D3 [Vitamin D3 (*)] 1,000 units PO DAILY 02/11/15 [Last Taken 11/26/16] Simvastatin [Zocor] 20 mg PO HS 02/11/15 [Last Taken 12/06/16 21:00] Warfarin Sodium [Coumadin 5MG (*)] 5 mg PO HS 06/10/16 [Last Taken 12/03/16] Sotalol HCl [Betapace 80 MG (*)] 80 mg PO BID #60 tab 11/11/16 [Last Taken 12/07 04:30] Acetaminophen [Tylenol 325mg (*)] 650 mg PO Q6HRS #0 tab 12/08/16 [Last Taken Unknown] Enoxaparin [Lovenox 80 MG (*)] 80 mg SC BID #0 syr 12/08/16 [Last Taken Unknown] Ferrous Sulfate [Slow Fe 140 MG (*)] 140 mg PO DAILY #0 tab.er 12/08/16 [Last Taken Unknown] oxyCODONE IR [Oxycodone Ir (*)] 5 - 10 mg PO Q3HRS PRN #0 tab 12/08/16 [Last Taken Unknown] Discharge Medications: Refer to the Discharge Home Medication list for PRN reason. - Orders Services needed: Home Care, Registered Nurse, Physical Therapy, Occupational Therapy Home Care Face to Face: I certify that this patient was under my care and that I had the required [id number] encounter meeting the encounter requirements on the discharge day. My findings support the fact that the patient is homebound as defined in CMS Chapter 7 Medicare Benefits Manual 30.1.1, The condition of the patient is such that there exists a normal inability to leave home and consequently, leaving home would require a considerable and taxing effort. Diet Recommendation: no restrictions on diet Diet Texture: Regular Texture Diet Robert Stockings Discontinue Date: active care compression system Wound Care Instructions: keep incision clean and dry. we will remove anjali at post-op visit Activity/Weight Bearing Restrictions: WBAT, use walker for ambulation; no knee flexion beyond 90 degrees Additional: follow-up with anticoagulation clinic on . follow-up with Dr. Quijano for low platelets - Follow Up Care Current Providers and Referrals: Ita Dixon MD [Primary Care Provider] -
--- NOTE | 2016-12-11 11:41 | GDS ---
[f rep st] DISCHARGE SUMMARY ADMISSION DIAGNOSES: 1. Left knee osteoarthritis. 2. History of deep venous thrombosis. 3. Presence of pacemaker. DISCHARGE DIAGNOSES: 1. Left knee osteoarthritis. 2. History of deep venous thrombosis. 3. Presence of pacemaker. HOSPITAL COURSE: The patient is a pleasant 86-year-old gentleman who is well known to our practice for ongoing knee pain. After careful decision-making and discussion, he underwent a left total knee arthroplasty by Dr. Dian Carrillo on January 06, 2017. He tolerated the procedure well without compl ication. He was transferred to the floor when PACU criteria was met. He worked with Physical Thera py and Occupational Therapy and continued to improve. His pain was well managed. Instruction from his aircraft servicer indicated desire for Lovenox bridging until his INR was therapeutic. He was began on Lovenox 80 mg twice daily the day following surgery. He tolerated this well. He was placed back on his Coumadin as well prior to discharge. He was in good and stable condition on December 08, 2016, and ready for discharge home with home health care. He is given strict instruction to follow up fo r an INR check in 2 days and to call with any issues or concerns. He did have evidence of some decr eased platelets, however, this was a chronic issue for the patient, and his supplier quality manager indicated t hat it would be safe to continue with anticoagulation even in the setting of slightly decreased plat elet levels. He was also given instruction to follow up with his supplier quality manager postoperatively, as sruthi snyder. All of his questions, and his 's questions were answered prior to discharge. He was in go od and stable condition at the time of discharge home. He was encouraged to call with any issues or concerns. /[id number]/MODL
== END 2016-12-08 15:50 | disposition home health service (06) | DRG 470 ==
LOC: F3N 05:51
PROVIDERS: ADMIT Orthopaedic Surgery; ATTEND Orthopaedic Surgery
PROC: 0SRD0J9 Replacement of Left Knee Joint with Synthetic Substitute, Cemented, Open Approach (ICD-10-PCS; principal; 2016-12-07 07:15)
DX: M17.12 Unilateral primary osteoarthritis, left knee (principal); I48.91 Unspecified atrial fibrillation; E78.5 Hyperlipidemia, unspecified
CPT/HCPCS: 97110-GP; 97116-GP; 97161-GP; 97165-GO; 97530-GP; C1713; G8978-GP-CJ; G8979-GP-CI; G8980-GP-CI; G8987-GO-CI; G8988-GO-CI; G8989-GO-CI; J0171; J0690; J1100; J1650; J1885; J2704; J2795; J3010

== ENCOUNTER 2017-01-25 10:41 | Inpatient (IN) | payer OTHER ==
--- NOTE | 2017-01-25 11:12 | CPEKG ---
Heart Rate: 70 RR Interval: 857 QRSD Interval: 86 QT Interval: 452 QTC Interval: 488 QRS [place]: 11 T Wave [place]: -7 EKG Severity - ABNORMAL ECG - EKG Impression: ATRIAL FLUTTER/FIBRILLATION, A-RATE 270 EKG Impression: MINIMAL ST DEPRESSION EKG Impression: BORDERLINE PROLONGED QT INTERVAL EKG Impression: Intermittent V pacing Electronically Signed By: Mauricio King 26-Jan-2017 13:17:40
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
[2017-01-25] MEDS ORDERED: valACYclovir 500 MG TAB PO ONE (12:14)
[2017-01-25 12:31] LABS: ANION GAP 7 mEq/L (8-16); CALCIUM 8.8 mg/dL (8.5-10.4); CARBON DIOXIDE 23 mEq/l (22-31); CHLORIDE 94 mEq/L (97-110); CREATININE 0.7 mg/dL (0.7-1.3); GLOMERULAR FILTRATION RATE > 60; GLUCOSE 106 mg/dL (70-100); POTASSIUM 4.5 mEq/L (3.5-5.2); SODIUM 124 mEq/L (134-144)
[2017-01-25 12:42] LABS: % IMMATURE GRANULYOCYTES 0.5 % (0.0-1.1); ABSOLUTE IMMATURE GRANULOCYTES 0.02 10^3/uL (0.00-0.10); ADD DIFF? NO; ADD MORPH? NO; ADD SCAN? NO; ATYPICAL LYMPHOCYTE FLAG 40 (0-99); FRAGMENT RBC FLAG 0 (0-99); HEMATOCRIT 35.7 % (40.0-51.0); HEMOGLOBIN 12.6 g/dL (13.7-17.5); LEFT SHIFT FLG 10 (0-99); LIPEMIA HEMOLYSIS FLAG 90 (0-99); MEAN CELL HEMOGLOBIN CONCENTR. 35.3 g/dL (32.4-36.7); MEAN CELL VOLUME 99.2 fL (81.5-99.8); MEAN PLATELET VOLUME 9.5 fL (8.7-11.7); PLATELET CLUMPS FLAG 0 (0-99); PLATELET COUNT 152 10^3/uL (150-400); RED CELL DISTRIBUTION WIDTH 15.1 % (11.5-15.2)
[2017-01-25 14:52] LABS: INR 2.2 (0.83-1.16); PROTIME(PATIENT) 24.6 SEC (12.0-15.0)
[2017-01-25] MEDS ORDERED: ONDANSETRON DISINTEGRATING 4 MG TAB PO PRN (14:55)
[2017-01-25] MEDS ORDERED: ONDANSETRON 4 MG/2 ML VIAL IVP PRN (14:55)
[2017-01-25] MEDS ORDERED: oxyCODONE IR 5 MG TAB PO PRN (14:55)
[2017-01-25] MEDS ORDERED: ACETAMINOPHEN 325 MG TAB PO PRN (14:55)
[2017-01-25] MEDS ORDERED: NS 500 ML IV ONE (15:15)
[2017-01-25] MEDS ORDERED: NON-FORMULARY NEW DRUG RTEYE SCH (15:30)
[2017-01-25] MEDS ORDERED: ZIRGAN 0.15% RTEYE SCH (16:15)
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
[2017-01-25] MEDS: ZIRGAN 0.15% RTEYE SCH ×2 (17:48→21:10)
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
[2017-01-25] MEDS: ACYCLOVIR 900 MG in D5W 250 ML IV SCH (21:16)
[2017-01-25] MEDS: WARFARIN SODIUM 5 MG TAB PO SCH (21:16)
[2017-01-25] MEDS: SOTALOL HCL 80 MG TAB PO SCH (21:16)
[2017-01-25] MEDS: ATORVASTATIN CALCIUM 10 MG TAB PO SCH (21:16)
[2017-01-26 05:03] LABS: % IMMATURE GRANULYOCYTES 0.4 % (0.0-1.1); ABSOLUTE IMMATURE GRANULOCYTES 0.02 10^3/uL (0.00-0.10); ADD DIFF? NO; ADD MORPH? NO; ADD SCAN? NO; ATYPICAL LYMPHOCYTE FLAG 90 (0-99); FRAGMENT RBC FLAG 0 (0-99); HEMATOCRIT 32.9 % (40.0-51.0); HEMOGLOBIN 11.6 g/dL (13.7-17.5); LEFT SHIFT FLG 0 (0-99); LIPEMIA HEMOLYSIS FLAG 90 (0-99); MEAN CELL HEMOGLOBIN 34.2 pg (27.9-34.1); MEAN CELL HEMOGLOBIN CONCENTR. 35.3 g/dL (32.4-36.7); MEAN CELL VOLUME 97.1 fL (81.5-99.8); MEAN PLATELET VOLUME 9.6 fL (8.7-11.7); PLATELET CLUMPS FLAG 0 (0-99); PLATELET COUNT 135 10^3/uL (150-400); RED BLOOD CELL COUNT 3.39 10^6/uL (4.40-6.38); RED CELL DISTRIBUTION WIDTH 14.8 % (11.5-15.2)
[2017-01-26 05:12] LABS: INR 2.12 (0.83-1.16); PROTIME(PATIENT) 23.9 SEC (12.0-15.0)
[2017-01-26 05:30] LABS: ANION GAP 5 mEq/L (8-16); CALCIUM 8.3 mg/dL (8.5-10.4); CARBON DIOXIDE 22 mEq/l (22-31); CHLORIDE 95 mEq/L (97-110); CREATININE 0.8 mg/dL (0.7-1.3); GLOMERULAR FILTRATION RATE > 60; GLUCOSE 100 mg/dL (70-100); POTASSIUM 4.4 mEq/L (3.5-5.2); SODIUM 122 mEq/L (134-144)
[2017-01-26] MEDS: ACYCLOVIR 900 MG in D5W 250 ML IV SCH ×3 (05:50→20:59)
[2017-01-26] MEDS: ZIRGAN 0.15% RTEYE SCH ×5 (05:51→23:12)
[2017-01-26] MEDS: SOTALOL HCL 80 MG TAB PO SCH ×2 (08:58→20:09)
[2017-01-26] MEDS: FERROUS SULFATE 140 MG TAB.ER PO SCH (08:59)
[2017-01-26] MEDS: SODIUM CHLORIDE 1,000 MG TAB PO SCH ×2 (08:59→20:09)
--- NOTE | 2017-01-26 11:50 | HOSPPROG ---
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; d/t SIADH - fluid restrict, Na tabs (threw up this am) - recheck at noon # herpes zoster ophthalmicus - still needs optho eval - cont gancyclovir eye gtt and acyclovir IV - appreciate ID eval # anemia - thought to be Fe defic - cont FeSO4 # DVT - warfarin, therapeutic # a-fib s/p ablation and ppm - sotolol #dispo - inpatient; needs ongoing inpatient treatment for critically low Na Subjective: still feels weak Objective: Vital Signs Temp Pulse Resp BP Pulse Ox 36.3 C 71 20 131/85 H 95 01/26/17 08:37 01/26/17 08:58 01/26/17 08:37 01/26/17 08:58 01/26/17 08:37 Laboratory Results 01/26/17 05:00 01/26/17 04:24 01/25/17 01/26/17 01/27/17 05:59 05:59 05:59 Intake Total 500 Output Total 150 Balance 350 PT 23.9 SEC (12.0-15.0) H 01/26/17 04:24 INR 2.12 (0.83-1.16) H 01/26/17 04:[address] Anaya's note - Physical Exam Constitutional: no apparent distress Ears, Nose, Mouth, Throat: other (R sided shingles with some R eye conjunctivitis) Cardiovascular: regular rate and rhythym, no murmur, rub, or gallop Respiratory: no respiratory distress, no rales or rhonchi, clear to auscultation Gastrointestinal: normoactive bowel sounds, soft, non-tender abdomen, no palpable masses ICD10 Worksheet Patient Problems: Problems Problem Status Onset Atrial fibrillation or flutter Acute Syncope Acute Shingles Acute Hyponatremia Acute
--- NOTE | 2017-01-26 11:54 | PCMIDPN ---
Assessment/Plan: Assessment/Plan: 1. HZ ophthalmicus: - Currently on IV acyclovir and tolerating without difficulty - Creatinine stable at 0.8. Close monitoring. Hydration status to be carefully monitored. -Platelets slightly lower today. Monitor. check LFT in am. - Ophtho to see patient. -Care coordinated with hospitalist team Meds acyclovir 900mg IV q8-01/25/17 Subjective: Afebrile. Less pain involving lesions over scalp , eyes, face. Still with mild blurring of vision. denies eye pain. denies sob, abd pain or diarrhea. Objective: Vital Signs Temp Pulse Resp BP Pulse Ox 36.3 C 71 20 131/85 H 95 01/26/17 08:37 01/26/17 08:58 01/26/17 08:37 01/26/17 08:58 01/26/17 08:37 Laboratory Results 01/26/17 05:00 01/26/17 04:24 01/25/17 01/26/17 01/27/17 05:59 05:59 05:59 Intake Total 500 Output Total 150 Balance 350 - Physical Exam General Appearance: alert, no apparent distress EENT: other (vesicular lesion on nose) Respiratory: lungs clear Cardiac/Chest: regular rate, rhythm Extremities: No swelling Abdomen: normal bowel sounds, non-tender, soft, No distended Skin: other (multiple skin lesions in various stages invovling scalp, right eyelid, face, nose. some vesicular, some scabbing. mld erythema associated. right eye weeping. ) ICD10 Worksheet Patient Problems: Problems Problem Status Onset Hyponatremia Acute Shingles Acute Atrial fibrillation or flutter Acute Syncope Acute
[2017-01-26 14:24] LABS: ANION GAP 7 mEq/L (8-16); CALCIUM 8.4 mg/dL (8.5-10.4); CARBON DIOXIDE 23 mEq/l (22-31); CHLORIDE 92 mEq/L (97-110); CREATININE 0.8 mg/dL (0.7-1.3); GLOMERULAR FILTRATION RATE > 60; GLUCOSE 97 mg/dL (70-100); POTASSIUM 4.4 mEq/L (3.5-5.2); SODIUM 122 mEq/L (134-144)
[2017-01-26] MEDS: ATORVASTATIN CALCIUM 10 MG TAB PO SCH (20:09)
[2017-01-26] MEDS: WARFARIN SODIUM 5 MG TAB PO SCH (20:09)
--- NOTE | 2017-01-26 22:53 | GCON ---
[f rep st] CONSULTATION OPHTHALMOLOGY CONSULTATION DATE OF CONSULTATION: 01/26/2017 REFERRING PHYSICIAN: Bereket Chowdary MD HISTORY OF PRESENT ILLNESS: The patient is an 86-year-old male who was seen at urgent care on and started on gentamicin eye ointment for a presumed bacterial infection. He subsequently pres ented to the ER on Wednesday. He was diagnosed with shingles and started on antivirals. During workup , it was noted that he had hyponatremia and he was admitted for electrolyte stabilization. ER staff started Zirgan ointment, and IV acyclovir was started upon admission. Patient reports his vision i s at or near baseline and he denies ocular pain. PAST OCULAR HISTORY: Prior cataract surgery with residual refractive error. He wore a spectacle co rrection. PAST MEDICAL HISTORY: Includes DVT, chronic anemia, history of atrial fibrillation, sleep apnea. ALLERGIES: Patient reports drug allergy to aspirin. SOCIAL HISTORY: The patient denies tobacco. Occasional alcohol. FAMILY HISTORY: Noncontributory. REVIEW OF SYSTEMS: Noncontributory. OPHTHALMIC EXAMINATION: Visual acuity at near with correction 20/30+ OD, 20/25 OS. Extraocular mot ilities are intact. Pupils are equal, round and reactive to light. Bedside examination reveals a f acial rash consistent with shingles. This extends to his midline, above his eye, and involves the e yelid. Lid has secondary ptosis. Conjunctivae and sclerae revealed trace injection OD. Cornea is clear and well formed. Visualization is limited at the bedside. Anterior chamber is deep and quiet . Irises normal. Lenses reveal posterior chamber intraocular lenses. Intraocular pressure by Nahum-Pen 17 OD, 14 OS. Dilated fundus exam was achieved with 1% tropicamide . Cup-to-disc ratios are 0.25 OU. Vitreous separation was noted. Normal vessels, macula and perip анна. No evidence of intraocular inflammation or retinitis. ASSESSMENT: Herpes zoster ophthalmicus. PLAN: Typically, HZO is managed as outpatient, and he was started on appropriate antiviral therapy in the emergency department. This should be continued as per discussions with patient's primary car e team. Zirgan was started in the ED, and while typically not part of treatment of HZO, there may b e potential benefit, okay to continue. No further recommendations at this time, patient should be d ischarged when medically stable and followed as an outpatient as is typical protocol. /[id number]/MODL
[2017-01-27 05:56] LABS: % IMMATURE GRANULYOCYTES 0.2 % (0.0-1.1); ABSOLUTE IMMATURE GRANULOCYTES 0.01 10^3/uL (0.00-0.10); ADD DIFF? NO; ADD MORPH? NO; ADD SCAN? NO; ATYPICAL LYMPHOCYTE FLAG 30 (0-99); FRAGMENT RBC FLAG 0 (0-99); HEMATOCRIT 33.2 % (40.0-51.0); LEFT SHIFT FLG 0 (0-99); LIPEMIA HEMOLYSIS FLAG 90 (0-99); MEAN CELL HEMOGLOBIN 34.6 pg (27.9-34.1); MEAN CELL HEMOGLOBIN CONCENTR. 36.1 g/dL (32.4-36.7); MEAN CELL VOLUME 95.7 fL (81.5-99.8); MEAN PLATELET VOLUME 9.5 fL (8.7-11.7); PLATELET CLUMPS FLAG 10 (0-99); PLATELET COUNT 135 10^3/uL (150-400); RED BLOOD CELL COUNT 3.47 10^6/uL (4.40-6.38); RED CELL DISTRIBUTION WIDTH 14.8 % (11.5-15.2)
[2017-01-27 06:24] LABS: ALANINE AMINOTRANSFERASE 31 IU/L (21-72); ALBUMIN 3.2 g/dL (3.5-5.0); ALKALINE PHOSPHATASE 81 IU/L (38-126); ANION GAP 7 mEq/L (8-16); ASPARTATE AMINOTRANSFERASE 20 IU/L (17-59); BILIRUBIN,TOTAL 1.8 mg/dL (0.1-1.4); CALCIUM 8.4 mg/dL (8.5-10.4); CARBON DIOXIDE 20 mEq/l (22-31); CHLORIDE 94 mEq/L (97-110); CREATININE 0.7 mg/dL (0.7-1.3); GLOMERULAR FILTRATION RATE > 60; GLUCOSE 94 mg/dL (70-100); SODIUM 121 mEq/L (134-144); TOTAL PROTEIN 5.5 g/dL (6.3-8.2)
[2017-01-27] MEDS: ZIRGAN 0.15% RTEYE SCH ×5 (07:00→21:21)
[2017-01-27] MEDS: ACYCLOVIR 900 MG in D5W 250 ML IV SCH (07:15)
[2017-01-27 08:40] LABS: CORTISOL-AM 8.3 ug/dL (4.5-22.7)
--- NOTE | 2017-01-27 09:27 | HOSPPROG ---
Hospitalist Progress Note Assessment/Plan: # hyponatremia - continues to worsen; still appears SIADH; did not tolerate Na tabs - recheck BMP at noon; recheck urine lytes - will change ACV to NS - renal c/s if worsens # herpes zoster ophthalmicus - appreciate ophtho/ID eval - consider changing to Valtrex given low Na - cont gancyclovir eye gtt's # anemia - thought to be Fe defic - cont FeSO4 # DVT - warfarin, therapeutic # a-fib s/p ablation and ppm - sotolol Subjective: still feels weak; discussed with Dr Dixon Objective: Vital Signs Temp Pulse Resp BP Pulse Ox 36.6 C 71 16 114/76 91 L 01/27/17 07:45 01/27/17 07:45 01/27/17 07:45 01/27/17 07:45 01/27/17 07:45 Laboratory Results 01/27/17 05:04 01/27/17 05:04 01/26/17 01/27/17 01/28/17 05:59 05:59 05:59 Intake Total 1200 Balance 1200 PT 23.9 SEC (12.0-15.0) H 01/26/17 04:24 INR 2.12 (0.83-1.16) H 01/26/17 04:24 - Physical Exam Constitutional: no apparent distress, appears nourished Ears, Nose, Mouth, Throat: other (R face zoster with improving R eye conjunctivitis) Respiratory: no respiratory distress, no rales or rhonchi Gastrointestinal: normoactive bowel sounds, soft, non-tender abdomen, no palpable masses ICD10 Worksheet Patient Problems: Problems Problem Status Onset Atrial fibrillation or flutter Acute Syncope Acute Shingles Acute Hyponatremia Acute
[2017-01-27] MEDS ORDERED: NS IV SCH (10:00)
[2017-01-27] MEDS ORDERED: ACYCLOVIR IV SCH (10:00)
[2017-01-27] MEDS: SOTALOL HCL 80 MG TAB PO SCH ×2 (10:16→21:21)
[2017-01-27] MEDS: FERROUS SULFATE 140 MG TAB.ER PO SCH (10:16)
[2017-01-27 13:23] LABS: ANION GAP 6 mEq/L (8-16); CARBON DIOXIDE 23 mEq/l (22-31); CHLORIDE 91 mEq/L (97-110); CREATININE 0.8 mg/dL (0.7-1.3); GLUCOSE 92 mg/dL (70-100); POTASSIUM 4.1 mEq/L (3.5-5.2); SODIUM 120 mEq/L (134-144)
[2017-01-27 13:24] LABS: CALCIUM 8.4 mg/dL (8.5-10.4); GLOMERULAR FILTRATION RATE > 60
--- NOTE | 2017-01-27 13:57 | PCMIDPN ---
Assessment/Plan: # right sided Herpes zoster ophthalmicus/V1 distribution with Schwartz sign: Obvious crusting of some of the lesion, persistent injection of right conjunctiva. Patient did receive shingles vaccination 3-4 years ago. --reasonable to change to p.o. Valtrex 1 g p.o. three times daily, day # 2 of 7 of therapy --call ID for additional questions Subjective: Patient without specific complaints. Reports vomiting sodium pills Objective: Vital Signs Temp Pulse Resp BP Pulse Ox 36.6 C 71 16 114/76 91 L 01/27/17 07:45 01/27/17 10:16 01/27/17 07:45 01/27/17 10:16 01/27/17 07:45 Laboratory Results 01/27/17 05:04 01/27/17 12:44 01/26/17 01/27/17 01/28/17 05:59 05:59 05:59 Intake Total 1200 Balance 1200 - Physical Exam General Appearance: alert, no apparent distress EENT: other (Right conjunctival injection), No scleral icterus Respiratory: lungs clear, No accessory muscle use Cardiac/Chest: regular rate, rhythm Skin: rash (Obvious papular/vesicular eruption in the right-sided V1 distribution with papule on the tip of his nose, some crusting medial forehead of lesions) Neuro/Psych: alert, normal mood/affect, oriented x 3 ICD10 Worksheet Patient Problems: Problems Problem Status Onset Hyponatremia Acute Shingles Acute Atrial fibrillation or flutter Acute Syncope Acute
[2017-01-27] MEDS: valACYclovir 500 MG TAB PO SCH ×2 (14:18→21:22)
[2017-01-27] MEDS: ATORVASTATIN CALCIUM 10 MG TAB PO SCH (21:21)
[2017-01-27] MEDS: WARFARIN SODIUM 5 MG TAB PO SCH (21:21)
[2017-01-28 05:18] LABS: ANION GAP 6 mEq/L (8-16); CALCIUM 8.8 mg/dL (8.5-10.4); CARBON DIOXIDE 22 mEq/l (22-31); CHLORIDE 98 mEq/L (97-110); CREATININE 0.9 mg/dL (0.7-1.3); GLOMERULAR FILTRATION RATE > 60; GLUCOSE 93 mg/dL (70-100); POTASSIUM 4.4 mEq/L (3.5-5.2); SODIUM 126 mEq/L (134-144)
[2017-01-28] MEDS: ZIRGAN 0.15% RTEYE SCH ×5 (05:33→21:07)
[2017-01-28] MEDS: valACYclovir 500 MG TAB PO SCH ×3 (05:34→21:04)
[2017-01-28] MEDS: FERROUS SULFATE 140 MG TAB.ER PO SCH (08:21)
--- NOTE | 2017-01-28 08:21 | HOSPPROG ---
Hospitalist Progress Note Assessment/Plan: # hyponatremia - better today with changing from ACV IV (wgave 750cc D5W per 24 hours) - Q8 BMP today - goal Na for tomorrow am <=134 # herpes zoster ophthalmicus - appreciate ophtho/ID eval - valtrex 1g TID - cont gancyclovir eye gtt's # anemia - thought to be Fe defic - cont FeSO4 # DVT - warfarin, therapeutic # a-fib s/p ablation and ppm - sotolol Subjective: still feels weak; no N/V/diarrhea Objective: Vital Signs Temp Pulse Resp BP Pulse Ox 36.5 C 70 14 103/81 H 95 01/28/17 07:51 01/28/17 07:51 01/28/17 07:51 01/28/17 07:51 01/28/17 07:51 Laboratory Results 01/27/17 05:04 01/28/17 04:27 01/27/17 01/28/17 01/29/17 05:59 05:59 05:59 Intake Total 1200 950 Output Total 550 Balance 1200 400 PT 23.9 SEC (12.0-15.0) H 01/26/17 04:24 INR 2.12 (0.83-1.16) H 01/26/17 04:24 - Physical Exam Constitutional: no apparent distress, appears nourished Ears, Nose, Mouth, Throat: other (zoster rash on R face; +conjunctivitis) Cardiovascular: regular rate and rhythym, no murmur, rub, or gallop Respiratory: no respiratory distress, no rales or rhonchi, clear to auscultation Gastrointestinal: normoactive bowel sounds, soft, non-tender abdomen, no palpable masses ICD10 Worksheet Patient Problems: Problems Problem Status Onset Atrial fibrillation or flutter Acute Syncope Acute Shingles Acute Hyponatremia Acute
[2017-01-28] MEDS: SOTALOL HCL 80 MG TAB PO SCH ×2 (08:56→21:05)
[2017-01-28 13:07] LABS: ANION GAP 6 mEq/L (8-16); CARBON DIOXIDE 25 mEq/l (22-31); CHLORIDE 95 mEq/L (97-110); GLOMERULAR FILTRATION RATE > 60; GLUCOSE 91 mg/dL (70-100); POTASSIUM 4.7 mEq/L (3.5-5.2); SODIUM 126 mEq/L (134-144)
[2017-01-28 20:20] LABS: ANION GAP 7 mEq/L (8-16); CALCIUM 8.8 mg/dL (8.5-10.4); CARBON DIOXIDE 21 mEq/l (22-31); CHLORIDE 95 mEq/L (97-110); GLOMERULAR FILTRATION RATE > 60; GLUCOSE 154 mg/dL (70-100); POTASSIUM 4.2 mEq/L (3.5-5.2); SODIUM 123 mEq/L (134-144)
[2017-01-28] MEDS: ATORVASTATIN CALCIUM 10 MG TAB PO SCH (21:04)
[2017-01-28] MEDS: WARFARIN SODIUM 5 MG TAB PO SCH (21:05)
[2017-01-29 05:21] LABS: ANION GAP 7 mEq/L (8-16); CALCIUM 8.3 mg/dL (8.5-10.4); CARBON DIOXIDE 21 mEq/l (22-31); CHLORIDE 99 mEq/L (97-110); CREATININE 0.9 mg/dL (0.7-1.3); GLOMERULAR FILTRATION RATE > 60; GLUCOSE 86 mg/dL (70-100); POTASSIUM 4.5 mEq/L (3.5-5.2); SODIUM 127 mEq/L (134-144)
[2017-01-29 05:28] LABS: INR 2.39 (0.83-1.16); PROTIME(PATIENT) 26.3 SEC (12.0-15.0)
[2017-01-29] MEDS: valACYclovir 500 MG TAB PO SCH ×3 (05:33→21:48)
[2017-01-29] MEDS: ZIRGAN 0.15% RTEYE SCH ×5 (05:33→21:50)
[2017-01-29] MEDS: FERROUS SULFATE 140 MG TAB.ER PO SCH (09:32)
[2017-01-29] MEDS: SOTALOL HCL 80 MG TAB PO SCH ×2 (09:32→21:48)
--- NOTE | 2017-01-29 14:57 | HOSPPROG ---
Hospitalist Progress Note Assessment/Plan: DIAGNOSES: # hyponatremia - - Overall little change since yesterday - will increase the oral sodium supplements and continue oral fluid restriction # herpes zoster ophthalmicus - appreciate ophtho/ID eval - appears clinically stable with no change in vision - valtrex 1g TID,cont gancyclovir eye gtt's # generalized weakness/deconditioning -continue PT OT # anemia, chronic - thought to be Fe defic - cont FeSO4 # DVT - warfarin, therapeutic # a-fib s/p ablation and ppm - stable on sotolol SUBJECTIVE: feels still weak and tired no eye pain no loss of visual acuity that he notices no new symptoms OBJECTIVE: Stable without fever Exam: alert oriented skin warm dry color ok resps not labored lungs clear BSs heart regular abd soft nondistended nontender, bowel sounds present limbs warm, no edema iv site ok 12 lead ekg, my reading of tracing: A flutter 4:1 block good vent rate control Laboratory data: Na better at 127, otherwise stable chem Objective: Vital Signs Temp Pulse Resp BP Pulse Ox 36.4 C 68 16 128/80 H 95 01/29/17 07:49 01/29/17 09:32 01/29/17 07:49 01/29/17 09:32 01/29/17 07:49 Laboratory Results 01/27/17 05:04 01/29/17 04:20 01/28/17 01/29/17 01/30/17 06:59 06:59 06:59 Intake Total 950 1950 Output Total 550 Balance 400 1950 PT 26.3 SEC (12.0-15.0) H 01/29/17 04:20 INR 2.39 (0.83-1.16) H 01/29/17 04:20 ICD10 Worksheet Patient Problems: Problems Problem Status Onset Hyponatremia Acute Shingles Acute Atrial fibrillation or flutter Acute Syncope Acute
--- NOTE | 2017-01-29 16:20 | CPEKG ---
Heart Rate: 71 RR Interval: 845 QRSD Interval: 92 QT Interval: 460 QTC Interval: 500 QRS [place]: 5 T Wave [place]: -20 EKG Severity - ABNORMAL ECG - EKG Impression: AFIB/FLUT AND V-PACED COMPLEXES EKG Impression: LOW VOLTAGE IN FRONTAL LEADS EKG Impression: NONSPECIFIC T ABNORMALITIES, ANTERIOR LEADS EKG Impression: PROLONGED QT INTERVAL Electronically Signed By: Oswaldo Cisneros 29-Jan-2017 16:52:31
[2017-01-29 16:46] LABS: ANION GAP 11 mEq/L (8-16); CALCIUM 8.4 mg/dL (8.5-10.4); CARBON DIOXIDE 21 mEq/l (22-31); CHLORIDE 94 mEq/L (97-110); CREATININE 0.9 mg/dL (0.7-1.3); GLOMERULAR FILTRATION RATE > 60; GLUCOSE 137 mg/dL (70-100); POTASSIUM 4.5 mEq/L (3.5-5.2); SODIUM 126 mEq/L (134-144)
[2017-01-29] MEDS: WARFARIN SODIUM 5 MG TAB PO SCH (21:48)
[2017-01-29] MEDS: ATORVASTATIN CALCIUM 10 MG TAB PO SCH (21:50)
[2017-01-30] MEDS: ZIRGAN 0.15% RTEYE SCH ×3 (05:17→14:49)
[2017-01-30] MEDS: valACYclovir 500 MG TAB PO SCH ×2 (05:17→14:48)
[2017-01-30 05:27] LABS: ANION GAP 7 mEq/L (8-16); CALCIUM 8.7 mg/dL (8.5-10.4); CARBON DIOXIDE 21 mEq/l (22-31); CHLORIDE 99 mEq/L (97-110); CREATININE 0.8 mg/dL (0.7-1.3); GLOMERULAR FILTRATION RATE > 60; GLUCOSE 93 mg/dL (70-100); POTASSIUM 4.2 mEq/L (3.5-5.2); SODIUM 127 mEq/L (134-144)
[2017-01-30 08:24] VITALS: BP 112/73; PULSE 66; RESP 14; TEMP 97.6; O2SAT 93
[2017-01-30] MEDS: FERROUS SULFATE 140 MG TAB.ER PO SCH (09:45)
[2017-01-30] MEDS: SOTALOL HCL 80 MG TAB PO SCH (09:46)
--- NOTE | 2017-01-30 16:37 | PDDCSUM ---
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 Anaya in [facility] of infectious disease Dr. Kitchen of Ophthalmology HOSPITAL COURSE SUMMARY: This patient presented to the hospital with fevers headache and rash was found to have herpes zoster ophthalmicus. Fortunately his vision is basically spared in his high appears to have low risk of significant complications at this time. He has been treated here with antivirals and is doing well with this. He is not having significant neuropathic pain. He has been seen by Infectious Disease and Ophthalmology here. The plan is to continue to complete a course of antiviral therapy and follow up in Ophthalmology Clinic to be certain that he maintains good eye health. In addition the patient had low sodium as low as 122 here in the hospital. He is euvolemic and has a high urine sodium is greater than 100. This has been treated with fluid restriction and salt supplements and he is now off the sodium of 127 where it is stable. His last sodium was in the 130s in normal range in early December 1 month ago. TSH and morning cortisol were normal is not on diuretics or other medications that should lower his sodium. He does not have other symptoms to suggest a different cause of SIADH. At this point his sodium remains stable and is asymptomatic worsening him home with continued salt supplement and oral fluid restriction. Will follow up with his primary care physician Dr. Dixon and will need repeat sodium testing. The patient and his family are aware of the importance of continuing to monitor manage this. If he does not eventually corrected sodium it may be worth considering imaging studies of the brain and chest or other assessments for a potential cause of this aside from the infection. Patient has a history of atrial fibrillation previously treated with ablation, multiple cardioversions, and multiple antiarrhythmics currently taking sotalol. He had previously been held in sinus rhythm on sotalol but had a recent minor surgical procedures acute him back to atrial fibrillation which she has been in since then. At this time he remains in atrial fibrillation and atrial flutter by EKG with good rate control. He is not in any heart failure not having any chest pain. He has a pacer to prevent a bradycardia. I recommended to the patient and his family that he will follow up with Dr. King to determine whether he should be stop taking his sotalol which I think makes the most sense at this point. PENDING TEST RESULTS: He will have repeat sodium testing with Dr. Dixon in clinic MEDICATION CHANGES: Valtrex 1 g three times daily to complete 7 days of therapy Sodium chloride tablets 1 g twice daily FOLLOW-UP PLAN: With Dr. King in 2-[address] Dixon in [address] Kitchen of Ophthalmology in 1-2 weeks Greater than 35 minutes bedside and care coordination time today
[2017-01-31] MEDS ORDERED: WARFARIN SODIUM 2.5 MG TAB PO SCH (21:00)
== END 2017-01-30 17:17 | disposition home or self-care (01) | DRG 125 ==
LOC: INTOOBSV 13:16 → F3E 15:19 → OBSVTOIN 01-26 11:51
PROVIDERS: ADMIT Student in an Organized Health Care Education/Training Program; ATTEND Student in an Organized Health Care Education/Training Program
DX: B02.30 Zoster ocular disease, unspecified (principal); E22.2 Syndrome of inappropriate secretion of antidiuretic hormone; I48.2 Chronic atrial fibrillation; I48.92 Unspecified atrial flutter; D50.9 Iron deficiency anemia, unspecified; G47.33 Obstructive sleep apnea (adult) (pediatric); E78.5 Hyperlipidemia, unspecified; Z95.0 Presence of cardiac pacemaker; Z86.718 Personal history of other venous thrombosis and embolism; Z79.01 Long term (current) use of anticoagulants
CPT/HCPCS: G0378; J0133

== ENCOUNTER → 2017-02-03 | Outpatient (CLI) | payer OTHER | LOC: BHFA 13:45 | PROVIDERS: ATTEND Internal Medicine Cardiovascular Disease | DX: I48.91 Unspecified atrial fibrillation (principal); I77.810 Thoracic aortic ectasia; Z79.01 Long term (current) use of anticoagulants; Z95.0 Presence of cardiac pacemaker ==

== ENCOUNTER → 2018-09-02 | Outpatient (CLI) | payer OTHER | LOC: BHFA 10:45 | PROVIDERS: ATTEND Internal Medicine Cardiovascular Disease | DX: I48.91 Unspecified atrial fibrillation (principal); I05.9 Rheumatic mitral valve disease, unspecified ==

== ENCOUNTER → 2018-11-08 | Outpatient (CLI) | payer OTHER ==
[~2018-11-08] MED LIST: IOPAMIDOL (ISOVUE-370) 150 ML BTL IV ONE
== END ==
LOC: FIMAGING 15:31
PROVIDERS: ATTEND Internal Medicine Cardiovascular Disease
DX: I71.2 Thoracic aortic aneurysm, without rupture (principal); I48.91 Unspecified atrial fibrillation; I38 Endocarditis, valve unspecified
CPT/HCPCS: 71275; Q9967; 82565-PO